=== PATIENT | female | born 1970 | race Caucasian/White ===

== ENCOUNTER → 2016-10-22 | Outpatient (CLI) | payer OTHER | LOC: FIMAGING 07:46 | DX: Z12.31 Encounter for screening mammogram for malignant neoplasm of breast (principal) | CPT/HCPCS: G0202 ==

== ENCOUNTER → 2017-02-11 | Outpatient (CLI) | payer OTHER | LOC: CIMAGING 12:15 | DX: M54.2 Cervicalgia (principal) | CPT/HCPCS: 72040-PO ==